=== PATIENT | female | born 1995 | race Caucasian/White ===

== ENCOUNTER 2021-01-16 19:56 | Inpatient (IN) | payer OTHER, SELFPAY ==
[2021-01-16 20:45] VITALS: BP 126/68; PULSE 62; RESP 14; TEMP 36.6; O2SAT 98
[2021-01-16 23:51] VITALS: BMI 29.2
[2021-01-17] MEDS: Acetaminophen 325 MG TABLET 650 MG PO ×2 (00:13→09:57)
--- NOTE | 2021-01-17 01:41 | PC.ADMIT ---
Patient is a 25 year old single, Senegalese speaking female admitted as a CV admission to at 2039 and placed on 15 minute safety checks. Patient was evaluated by FORESTRY TECHNICIAN and medically cleared at the [facility] ED. The patient had called crisis for help due to anxiety, depression and thoughts of suicide with a plan. Patient had recently broken up with her boyfriend of 9 years and was struggling emotionally for the last 3 days. Patient denied any previous inpatient psychiatric admissions and said she does not have a therapist or psychiatrist. She does have a PCP with [facility] in [place]. Patient said she has not been compliant with medications that she takes for her inflammatory bowel disease and has not been taking any medications for recurrent UTIs. Patient stated Um, due to all the recent trauma I haven't been thinking very clearly and I haven't been good about taking my medications . Patient was cooperative during the admission process but explained I have a problem with people in authority. Sometimes I just block them out. I don't know why I do it. I have Autism and that is part of the way I think . Patient's admission orders were put in. Patient signed all legals. She will be on 15 minute safety checks.
[2021-01-17 06:00] VITALS: BP 113/71; PULSE 75; RESP 18; TEMP 36.5; O2SAT 98
[2021-01-17 08:39] LABS: MANUAL DIFF FLAG NO
[2021-01-17 08:43] LABS: Basophils Percent Auto 0.2 % (0-2); Eosinophils Absolute Auto 0.1 X10*3/uL (0.0-0.4); Eosinophils Percent Auto 0.6 % (0-4); Hematocrit 38.8 % (37-47); Hemoglobin 13.2 g/dl (12.0-16.0); Imm Gran Abs Auto 0.02 X10*3/uL (0.00-0.03); Imm Gran Pct Auto 0.2 % (0.0-0.4); Lymphocytes Absolute Auto 1.8 X10*3/uL (1.2-4.9); Lymphocytes Percent Auto 21.7 % (20-40); Mean Corpuscular Hemoglobin 30.6 pg (27.0-33.0); Mean Corpuscular Volume 89.8 fL (80-98); Mean Platelet Volume 10.2 fL (9.4-12.3); Monocytes Absolute Auto 0.7 X10*3/uL (0.1-1.2); Monocytes Percent Auto 8.7 % (2-11); Neutrophils Absolute Auto 5.6 X10*3/uL (2.0-8.3); Neutrophils Percent Auto 68.6 % (45-73); Platelet Count 287 X10*3/uL (160-400); Red Blood Count 4.32 X10*6/uL (4.20-5.50); Red Cell Distribution Width 12.3 % (11.0-16.0); White Blood Count 8.2 X10*3/uL (4.8-10.8)
[2021-01-17 08:52] LABS: UPreg QC Valid YES; Urine Pregnancy NEGATIVE (NEGATIVE)
[2021-01-17 09:18] LABS: Alanine Aminotransferase 9 U/L (0-31); Albumin Level 4.5 g/dL (3.5-5.0); Alkaline Phosphatase 103 U/L (39-117); Anion Gap 11 (12-20); Aspartate Amino Transferase 14 U/L (5-31); Bilirubin Total 0.9 mg/dL (0.0-1.0); Blood Urea Nitrogen 10 mg/dL (9-16); Calcium 9.5 mg/dL (8.4-10.2); Carbon Dioxide 27 mmol/L (22-29); Chloride 103 mmol/L (96-108); Cholesterol 147 mg/dL; Creatinine Clr Calc Pharmacy 98.2; Estimated Glomerular Filt Rate > 60; Glucose Fasting 91 mg/dL (60-99); HDL Cholesterol 36 mg/dL; LDL Cholesterol Calculated 91 mg/dl; Potassium 4.3 mmol/L (3.3-5.1); Sodium 137 mmol/L (135-145); Total Protein 7.6 g/dL (6.5-8.0); Triglycerides 102 mg/dL
[2021-01-17 09:22] LABS: Amphetamine Screen Urine Not Detected (Not Detect); Barbiturates, Urine Not Detected (Not Detect); Benzodiazepines Screen Urine Not Detected (Not Detect); Cannabinoid Screen Urine Not Detected (Not Detect); Cocaine Screen Urine Not Detected (Not Detect); Fentanyl, urine Not Detected (Not Detect); Opiate Screen Urine Not Detected (Not Detect); Phencyclidine Screen Urine Not Detected (Not Detect)
[2021-01-17 09:27] LABS: Appearance Urine HAZY; Color Urine YELLOW; Glucose Urine UA NEG (NEG); Leukocyte Esterase Urine TRACE (NEG); Nitrite Urine NEG (NEG); Specific Gravity - Urine 1.025 (1.005-1.025); UACC Culture Trigger YES; Urine Blood 1+ (NEG); Urine Ketones NEG (NEG); Urine Protein NEG (NEG-TRACE)
[2021-01-17 09:38] LABS: TSH reflex Free T4 0.93 uIU/mL (0.32-4.0)
[2021-01-17 09:40] VITALS: BMI 27.8
[2021-01-17 09:50] LABS: Bacteria Urine TRACE /LPF; Squamous Epithelial Cell Urine 2+ /LPF
[2021-01-17 10:29] LABS: Reflex LDLD? No
[2021-01-17] MEDS: Balsalazide Disodium 750 MG CAPSULE PO ×2 (13:12→21:12)
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
[2021-01-17 18:00] VITALS: BP 123/82; PULSE 86; RESP 16
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
[2021-01-18 06:00] VITALS: BP 117/64; PULSE 84; RESP 16; TEMP 36.6; O2SAT 100
[2021-01-18] MEDS: Acetaminophen 325 MG TABLET 650 MG PO (06:53)
[2021-01-18] MEDS: Balsalazide Disodium 750 MG CAPSULE PO ×2 (08:46→20:34)
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
[2021-01-18 18:00] VITALS: BP 132/78; PULSE 97; TEMP 35.8; O2SAT 98
[2021-01-18] MEDS: clonazePAM 0.5 MG TABLET PO (22:30)
[2021-01-19 06:00] VITALS: BP 117/64; PULSE 82; RESP 18; TEMP 36.9; O2SAT 100
[2021-01-19] MEDS: Balsalazide Disodium 750 MG CAPSULE PO ×2 (08:57→19:48)
[2021-01-19] MEDS: Sertraline HCL 25 MG TABLET PO (08:57)
[2021-01-19] MEDS: Acetaminophen 325 MG TABLET 650 MG PO (09:23)
[2021-01-19] MEDS: Lidocaine 4 % Patch ADH..PATCH 1 PATCH TRANSDERMA (12:36)
[2021-01-19 16:46] VITALS: BP 123/67; PULSE 100; TEMP 36.2; O2SAT 98
--- NOTE | 2021-01-19 22:06 | P.PNPSI_ITS ---
Subjective Subjective Date of Service: 01/19/21 Reason For Visit: Adjustment D/O w/mixed anxiety & depression Subjective Notes: Conditional Voluntary Healthcare Proxy: No Guardianship: No Medical Problems Affecting Mental Status: Yes Interim History: Patient is quite anxious ruminating complains of nightmares denies active SI in the setting No complaints of side effects from sertraline Medication Compliance: Yes Mental Status Exam Mental Status Exam Patient Appearance: Appropriate Patient Orientation: Person, Place, Time and Situation Level of Consciousness: Alert Patient Behavior: Appropriate and Talkative Mood Description: Depressed Affect Description: Angry and Flat Patient Cognition Impaired: No Ability to Follow Directions: Good Speech Pattern: Spontaneous Speech Memory Description: Intact Hallucinations: None Delusions: Not Present Thought Process: Rumination Thought Content: positive for Circumstantial Depressive Symptoms: Increased Anxiety, Unhappiness and Thoughts of /Suicide Judgement: Fair Diagnostics Vital Signs (24Hr): Vital Signs - 24 hr 01/19/21 06:00 01/19/21 16:46 Temperature 98.4 F 97.2 F Pulse Rate 82 100 Respiratory Rate 18 Blood Pressure 117/64 123/67 Pulse Oximetry 100 98 Body Mass Index 27.8 Labs Results: 01/17/21 07:59 01/17/21 07:59 Medications Medications Current Medications Acetaminophen (Acetaminophen 325 Mg Tablet) 650 mg PO Q6H PRN PRN Reason: Headache/Pain Mild Scale (1-3) Last Admin: 01/19/21 09:23 Dose: 650 mg Documented by: Al Hydroxide/Mg Hydroxide (Magnesium Hydrox/Alum Hydrox 30 Ml Oral.Susp) 30 ml PO Q6H PRN PRN Reason: Heartburn/Nausea Balsalazide (Balsalazide Disodium 750 Mg Capsule) 750 mg PO BID [facility] Last Admin: 01/19/21 19:48 Dose: 750 mg Documented by: Cefuroxime Axetil (Cefuroxime Axetil 250 Mg Tablet) 250 mg PO BID [facility] Stop: 01/22/21 09:01 Last Admin: 01/19/21 19:48 Dose: 250 mg Documented by: Clonazepam (Clonazepam 0.5 Mg Tablet) 0.5 mg PO BID PRN PRN Reason: anxiety/restlessness Last Admin: 01/18/21 22:30 Dose: 0.5 mg Documented by: Hydroxyzine HCl (Hydroxyzine Hcl 25 Mg Tablet) 25 mg PO BEDTIME PRN PRN Reason: Anxiety Lidocaine (Lidocaine 4 % Patch Adh..Patch) 1 patch TRANSDERMA DAILY [facility]; Protocol Last Admin: 01/19/21 12:36 Dose: 1 patch Documented by: Magnesium Hydroxide (Milk Of Magnesia 30 Ml Oral.Susp) 30 ml PO DAILY PRN PRN Reason: Constipation Sertraline HCl (Sertraline Hcl 25 Mg Tablet) 25 mg PO DAILY [facility] Last Admin: 01/19/21 08:57 Dose: 25 mg Documented by: Trazodone HCl (Trazodone Hcl 50 Mg Tablet) 50 mg PO BEDTIME PRN PRN Reason: Insomnia Allergies Allergies Allergy/AdvReac Type Severity Reaction Status Date / Time phenazopyridine Allergy Mild Abdominal Verified 01/16/21 22:10 [From Pyridium] Pain latex Allergy Unknown unk Verified 01/17/21 18:26 pollen extracts Allergy Unknown unk Verified 01/17/21 18:26 Assessment & Plan Assessment & Plan (1) Autism spectrum disorder: Status: Acute Code(s): F84.0 - Autistic disorder (2) Adjustment reaction with anxiety and depression: Status: Acute Code(s): F43.23 - Adjustment disorder with mixed anxiety and depressed mood Assessment and Plan: Continue plan of care emotional support Education Discharge planning coping strategies continue sertraline Greater than 50% of the session was spent on counseling and/or coordination of care Reason for contiued inpatient stay Substantial Risk for: rapid decompensation
[2021-01-19] MEDS: traZODone HCL 50 MG TABLET PO (22:20)
[2021-01-20 08:41] VITALS: BP 113/59; PULSE 74; RESP 16; TEMP 36.7; O2SAT 97
[2021-01-20] MEDS: Lidocaine 4 % Patch ADH..PATCH 1 PATCH TRANSDERMA (08:46)
[2021-01-20] MEDS: Sertraline HCL 25 MG TABLET PO (08:48)
[2021-01-20] MEDS: Balsalazide Disodium 750 MG CAPSULE PO ×2 (08:48→19:59)
[2021-01-20 18:00] VITALS: BP 130/75; PULSE 91; TEMP 36.1
[2021-01-20] MEDS: Acetaminophen 325 MG TABLET 650 MG PO (18:09)
--- NOTE | 2021-01-20 19:40 | P.PNPSI_ITS ---
Subjective Subjective Date of Service: 01/20/21 Reason For Visit: Adjustment D/O w/mixed anxiety & depression Subjective Notes: Conditional Voluntary Healthcare Proxy: No Guardianship: No Interim History: Patient anxious and ruminating but states she is feeling better than prior to when she came in has started low-dose sertraline denies current active self-harm Medication Compliance: Yes Side effects from medications: Yes Mental Status Exam Mental Status Exam Patient Appearance: Appropriate Patient Orientation: Person, Place, Time and Situation Level of Consciousness: Alert Patient Behavior: Appropriate and Talkative Mood Description: Constricted and Anxious Affect Description: Flat and Apprehensive Patient Cognition Impaired: No Ability to Follow Directions: Good Speech Pattern: Spontaneous Speech Memory Description: Intact Hallucinations: None Delusions: Not Present Thought Process: Rumination Thought Content: positive for Circumstantial Depressive Symptoms: Increased Anxiety, Unhappiness and Thoughts of /Suicide Judgement: Fair Diagnostics Vital Signs (24Hr): Vital Signs - 24 hr 01/20/21 08:41 01/20/21 18:00 Temperature 98.1 F 97.0 F Pulse Rate 74 91 Respiratory Rate 16 Blood Pressure 113/59 L 130/75 Pulse Oximetry 97 Body Mass Index 27.8 Labs Results: 01/17/21 07:59 01/17/21 07:59 Medications Medications Current Medications Acetaminophen (Acetaminophen 325 Mg Tablet) 650 mg PO Q6H PRN PRN Reason: Headache/Pain Mild Scale (1-3) Last Admin: 01/20/21 18:09 Dose: 650 mg Documented by: Al Hydroxide/Mg Hydroxide (Magnesium Hydrox/Alum Hydrox 30 Ml Oral.Susp) 30 ml PO Q6H PRN PRN Reason: Heartburn/Nausea Balsalazide (Balsalazide Disodium 750 Mg Capsule) 750 mg PO BID [facility] Last Admin: 01/20/21 08:48 Dose: 750 mg Documented by: Cefuroxime Axetil (Cefuroxime Axetil 250 Mg Tablet) 250 mg PO BID [facility] Stop: 01/22/21 09:01 Last Admin: 01/20/21 08:48 Dose: 250 mg Documented by: Clonazepam (Clonazepam 0.5 Mg Tablet) 0.5 mg PO BID PRN PRN Reason: anxiety/restlessness Last Admin: 01/18/21 22:30 Dose: 0.5 mg Documented by: Hydroxyzine HCl (Hydroxyzine Hcl 25 Mg Tablet) 25 mg PO BEDTIME PRN PRN Reason: Anxiety Lidocaine (Lidocaine 4 % Patch Adh..Patch) 1 patch TRANSDERMA DAILY [facility]; Protocol Last Admin: 01/20/21 08:46 Dose: 1 patch Documented by: Magnesium Hydroxide (Milk Of Magnesia 30 Ml Oral.Susp) 30 ml PO DAILY PRN PRN Reason: Constipation Sertraline HCl (Sertraline Hcl 25 Mg Tablet) 25 mg PO DAILY [facility] Last Admin: 01/20/21 08:48 Dose: 25 mg Documented by: Trazodone HCl (Trazodone Hcl 50 Mg Tablet) 50 mg PO BEDTIME PRN PRN Reason: Insomnia Last Admin: 01/19/21 22:20 Dose: 50 mg Documented by: Allergies Allergies Allergy/AdvReac Type Severity Reaction Status Date / Time phenazopyridine Allergy Mild Abdominal Verified 01/16/21 22:10 [From Pyridium] Pain latex Allergy Unknown unk Verified 01/17/21 18:26 pollen extracts Allergy Unknown unk Verified 01/17/21 18:26 Assessment & Plan Assessment & Plan (1) Autism spectrum disorder: Status: Acute Code(s): F84.0 - Autistic disorder (2) Adjustment reaction with anxiety and depression: Status: Acute Code(s): F43.23 - Adjustment disorder with mixed anxiety and depressed mood Assessment and Plan: Continue plan of care emotional support Education Discharge planning coping strategies continue sertraline monitor safety Greater than 50% of the session was spent on counseling and/or coordination of care Reason for contiued inpatient stay Substantial Risk for: harm to self and rapid decompensation
[2021-01-20] MEDS: hydrOXYzine HCL 25 MG TABLET PO (19:59)
[2021-01-21 06:00] VITALS: BP 123/74; PULSE 67; RESP 18; TEMP 36.7; O2SAT 98
[2021-01-21] MEDS: Lidocaine 4 % Patch ADH..PATCH 1 PATCH TRANSDERMA (08:17)
[2021-01-21] MEDS: Balsalazide Disodium 750 MG CAPSULE PO (08:17)
[2021-01-21] MEDS: Sertraline HCL 25 MG TABLET PO (08:18)
[2021-01-21] MEDS: Acetaminophen 325 MG TABLET 650 MG PO (08:50)
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
== END 2021-01-21 14:15 | disposition home or self-care (01) | DRG 755 ==
PROVIDERS: Psychiatry & Neurology Psychiatry; Admitting Provider Psychiatry & Neurology Psychiatry; PCP Family Medicine; Visit Provider Clinical Nurse Specialist Psychiatric/Mental Health, Adult
DX: F43.23 Adjustment disorder with mixed anxiety and depressed mood (principal); R45.851 Suicidal ideations; K51.90 Ulcerative colitis, unspecified, without complications; F84.0 Autistic disorder; Z79.51 Long term (current) use of inhaled steroids; Z79.899 Other long term (current) drug therapy
CPT/HCPCS: 36415; 80053; 80061; 80307; 81001; 81025; 84443; 85025; 87086